=== PATIENT | female | born 1990 | race Caucasian/White ===

== ENCOUNTER 2020-06-01 04:48 | Inpatient (IN) ==
[2020-06-01] MEDS ORDERED: OXYTOCIN 30 UNITS/500 ML BAG IV PRN ×3 (05:11→19:08)
[2020-06-01] MEDS ORDERED: miSOPROStoL 50 MCG TAB PO ONE (05:11)
--- NOTE | 2020-06-01 05:32 | History & Physical Report ---
Date of Service June 01, 2020 Assessment & Plan (1) Supervision of resulting from assisted reproductive technology, antepartum: - heart tracing category 1 with variability and accelerations -Patient with contractions every 3 to 5 minutes mild to palpation -We will monitor for contraction frequency and may need to augment labor- anticipate vaginal delivery (2) Encounter for screening laboratory testing for COVID-19 virus: -Repeat COVID screening is pending -Patient asymptomatic -Rapid screening ordered History of Present Illness Chief Complaint: Rupture of membranes Primary Care Provider: Maurice Parmar MD The patient is a 30-year-old 1 para 0, with an EDC of 01 June at 40 weeks gestational age, who presents to labor and delivery with spontaneous rupture of membranes. Patient states that the membranes ruptured at approximately 0300 hrs. She described the fluid is clear. She was having some cramping prior to the rupture of membranes. Patient's course is remarkable for an IVF . She has been followed per protocol. She has had testing which is all been reassuring. Laboratory values for the show blood type of A+, antibody negative, rubella immune, hepatitis B negative, she had a normal 1 hour Glucola x2, and a negative third trimester beta strep culture. COVID-19 screening from 30 May is pending. Allergies Allergy/AdvReac Type Severity Reaction Status Date / Time No Known Drug Allergies Allergy None Verified 06/01/20 05:10 Home Medications Home Medications Medication Instructions Recorded Confirmed Type prenat.vits,jackeline,[id number] 1 tab PO DAILY 10/27/19 06/01/20 History levothyroxine 75 mcg tablet 75 mcg PO DAILY #30 tab 02/17/20 06/01/20 Rx Patient History Medical History Health care maintenance History of hysterosalpingogram Hx of varicella Hypothyroidism In vitro fertilization Supervision of normal intrauterine in primigravida Surgical History H/O dilation and curettage Family History Mother Thyroid disease Father No problems noted. Grandfather (Paternal) Prostate cancer Denies family history of Ovarian cancer Myocardial infarction Breast cancer Colorectal cancer Social History Smoking Status: Never smoker Hx Alcohol Use: No Hx Substance Use: No marital status: marital status details: Chao Gomez ( 29) [phone] Current Living Situation: Spouse Current Living Situation Comment: lives with spouse, 1 dog current occupational status: unemployed current occupation: homemaker Physical Exam Constitutional: WD/WN, vitals as above Respiratory: Auscultation: lungs clear to auscultation bilaterally Cardiovascular: RRR, no murmur, no edema Extremities: no calf tenderness Gastrointestinal (Abdomen): Abdomen: Gravid vertex positive heart tones estimated weight of 7 and half pounds, mild contractions Genitourinary: Cervix: 1 cm / 90%/0 station, gross rupture Results & Data ([facility]) Vital Signs (Past 12 Hours) Vital Signs Pulse BP 06/01/20 05:04 66 120/63 Coding Level of Care Code None Diagnoses Supervision of resulting from assisted reproductive technology, antepartum O09.819 Encounter for screening laboratory testing for COVID-19 virus Z11.59
[2020-06-01 05:35] LABS: Hematocrit (blood only) 36.6 % (37-47); Hemoglobin 12.3 g/dL (12.0-16.0); Mean Corpuscular Hemoglobin 30.3 pg (25-34); Mean Corpuscular Volume 90.1 fL (80-100); Mean Platelet Volume 9.2 fL (7.4-10.4); Platelet Count 288 K/uL (130-400); RDW Coefficient of Variation 12.7 % (11.5-14.5); RDW Standard Deviation 41.4 fL (36.4-46.3); Red Blood Count 4.06 M/uL (4.2-5.4); White Blood Count 9.64 K/uL (4.8-10.8)
[2020-06-01 05:36] LABS: Mean Corpuscular Hgb Conc 33.6 g/dL (32-36)
[2020-06-01] MEDS: LACTATED RINGER'S 1,000 ML IV PRN ×3 (06:47→13:02)
[2020-06-01] MEDS ORDERED: fentaNYL citrate 100 MCG/2 ML VIAL ONE (07:14)
[2020-06-01] MEDS ORDERED: ePHEDrine sulfate 50 MG/ML AMP ONE (07:14)
[2020-06-01] MEDS ORDERED: BUPIVACAINE 0.25% 30 ML VIAL ONE (07:14)
[2020-06-01] MEDS ORDERED: DiphenhydrAMINE HCL 50 MG/ML VIAL IV PRN (07:15)
[2020-06-01] MEDS ORDERED: ePHEDrine sulfate 50 MG/ML AMP IV PRN (07:15)
[2020-06-01] MEDS ORDERED: NALOXONE HCL 0.4 MG/1 ML VIAL/CARP IV PRN (07:15)
[2020-06-01] MEDS ORDERED: fentaNYL 2MCG/ML ROPIV 1.25MG/ML 100 ML BAG EPI PRN (07:15)
[2020-06-01] MEDS ORDERED: fentaNYL 2MCG/ML ROPIV 1.25MG/ML 100 ML BAG EPI ONE (07:15)
[2020-06-01] MEDS ORDERED: ONDANSETRON INJ 2 MG/ML 2 ML VIAL IV PRN (07:15)
[2020-06-01] MEDS ORDERED: NALOXONE HCL 1 MG in SODIUM CHLORIDE 0.9% 1000ML 1,000 ML IV PRN (07:15)
--- NOTE | 2020-06-01 07:23 | Anesthesiology Consultation ---
Date of Service June 01, 2020 Covid 19 negative today Assessment & Plan Chart Review Chart Review: Patient NOT seen in Pre Admission Testing and Acceptable Risk for Labor Epidural Consults Requested none ASA ASA2 Proposed Anesthesia Anesthesia Type: Labor Epidural and CSE Risk / Benefits Reviewed With: PT / POA / Parent / Guardian, Accepts Plan and Informed Consent Obtained History Height/Weight Height: 5 ft 3 in Weight: 86.636 kg Allergies Allergy/AdvReac Type Severity Reaction Status Date / Time No Known Drug Allergies Allergy None Verified 06/01/20 05:10 Medications Home Medications Medication Instructions Recorded Confirmed Last Taken prenat.vits,jackeline,[id number] 1 tab PO DAILY 10/27/19 06/01/20 06/01/20 levothyroxine 75 mcg tablet 75 mcg PO DAILY #30 tab 02/17/20 06/01/20 05/31/20 Active Medications Generic Name Dose Route Start Last Admin Trade Name Freq PRN Reason Stop Dose Admin Lactated Ringer's 1,000 mls @ 125 mls/hr 06/01/20 05:11 06/01/20 06:47 Lr IV 06/03/20 05:10 999 mls/hr .Q8H PRN Administration L&D Protocol Protocol NPO Date Last Intake of Fluids: 06/01/20 Time Last Intake of Fluids: 06:30 Date Last Intake of Solids: 05/31/20 Time Last Intake of Solids: 19:00 Past Medical History Medical History Health care maintenance History of hysterosalpingogram Hx of varicella Hypothyroidism In vitro fertilization Supervision of normal intrauterine in primigravida Exercise / Class Metabolic Activity II 4-5 Yardwork/Stairs/Walk up hill Past Family History Family History Mother Thyroid disease Father No problems noted. Grandfather (Paternal) Prostate cancer Denies family history of Ovarian cancer Myocardial infarction Breast cancer Colorectal cancer Past Surgical History Surgical History H/O dilation and curettage Past Anesthesia History No Hx of Anesthesia Complications and No Family Hx of Anesthesia Complications History of PONV No Hx of PONV and No Hx of Motion Sickness Social History Smoking Status: Never smoker Hx Alcohol Use: No Hx Substance Use: No substance use type: does not use Review of Systems no chest pain or sob Physical Exam Vital Signs Last Vital Signs Temp 36.8 C 06/01/20 05:12 Pulse 78 06/01/20 07:18 Resp 18 06/01/20 05:12 BP 112/55 L 06/01/20 07:00 Pulse Ox 99 06/01/20 07:18 ENMT Mouth: no TMJ abnormality Thyromental Distance: > or= 3.5 Finger Breadths Mallampati Class: II Neck normal visual inspection Respiratory normal respiratory effort Auscultation: lungs clear to auscultation bilaterally Cardiovascular Rate/Rhythm: regular rate and regular rhythm Musculoskeletal Spine: normal cervical ROM Neurologic moves all extremities Psychiatric Orientation: alert and oriented x 3 Testing Laboratory Results 06/01/20 05:23
--- NOTE | 2020-06-01 11:21 | Labor Progress Brief Note ---
Date of Service June 01, 2020 Subjective Comfortable with epidural. Assessment & Plan (1) PROM (premature rupture of membranes): PROM this morning at 0300, no significant labor progress since admission. Start pitocin now. Admission and Anticipated Discharge Date Admission Date: June 01, 2020 Physical Exam Physical Exam: LOF clear and copious during exam. 290/-2 Vertex palpable FHT Cat 1 [place] Q3min. Results & Data ([facility]) Vital Signs (Past 12 Hours) Vital Signs Temp Pulse Resp BP Pulse Ox 06/01/20 11:17 70 111/56 L 06/01/20 11:14 78 96 06/01/20 11:09 72 99 06/01/20 11:08 76 92 06/01/20 11:04 71 96 06/01/20 11:03 86 93 06/01/20 11:01 67 120/56 L 06/01/20 10:59 70 96 06/01/20 10:56 73 92 06/01/20 10:54 75 96 06/01/20 10:50 75 93 06/01/20 10:49 75 96 06/01/20 10:46 67 117/59 L 06/01/20 10:44 73 96 06/01/20 10:39 76 95 06/01/20 10:35 77 92 06/01/20 10:34 92 H 95 06/01/20 10:30 68 118/62 06/01/20 10:29 71 96 06/01/20 10:24 74 99 06/01/20 10:19 72 99 06/01/20 10:16 63 113/58 L 06/01/20 10:14 89 99 06/01/20 10:09 90 99 06/01/20 10:04 74 96 06/01/20 10:01 110 H 90 06/01/20 10:00 86 110/57 L 06/01/20 09:59 76 96 06/01/20 09:54 71 97 06/01/20 09:49 67 97 06/01/20 09:48 66 93 06/01/20 09:45 73 112/61 06/01/20 09:44 72 97 06/01/20 09:39 74 98 06/01/20 09:34 71 100 06/01/20 09:31 71 121/56 L 06/01/20 09:29 76 99 06/01/20 09:24 74 99 06/01/20 09:19 76 100 06/01/20 09:15 88 103/58 L 06/01/20 09:13 79 96 06/01/20 09:08 77 97 06/01/20 09:03 72 99 06/01/20 09:02 74 102/56 L 06/01/20 08:58 72 98 06/01/20 08:53 76 96 06/01/20 08:48 79 97 06/01/20 08:46 98.6 F 74 16 99/58 L 06/01/20 08:43 79 100 06/01/20 08:38 78 100 06/01/20 08:33 78 100 06/01/20 08:32 66 108/57 L 06/01/20 08:30 58 L 92 06/01/20 08:28 63 100 06/01/20 08:23 68 100 06/01/20 08:18 86 100 06/01/20 08:17 82 124/71 06/01/20 08:13 74 100 06/01/20 08:12 77 97/54 L 06/01/20 08:08 69 97 06/01/20 08:07 75 90 06/01/20 08:03 79 97 06/01/20 08:02 72 20 101/51 L 06/01/20 07:58 79 99 06/01/20 07:53 72 100 06/01/20 07:48 85 100 06/01/20 07:45 76 107/53 L 06/01/20 07:43 75 104/55 L 99 06/01/20 07:41 75 99/52 L 06/01/20 07:39 83 94/55 L 06/01/20 07:38 84 98 06/01/20 07:37 75 96/56 L 06/01/20 07:35 76 98/55 L 06/01/20 07:33 69 96 06/01/20 07:32 76 22 121/61 93 06/01/20 07:28 83 98 06/01/20 07:26 82 93 06/01/20 07:23 98.6 F 84 20 99 06/01/20 07:18 78 99 06/01/20 07:17 8 L 75 L 06/01/20 07:00 74 112/55 L 06/01/20 05:12 98.2 F 18 06/01/20 05:04 66 120/63 Coding Level of Care Code None Diagnoses PROM (premature rupture of membranes) O42.90
--- NOTE | 2020-06-01 13:06 | Labor Progress Brief Note ---
Date of Service June 01, 2020 Subjective Patient comfortable with epidural. RN called MD to alert me of deceleration. Assessment & Plan (1) PROM (premature rupture of membranes): intolerance to closely-spaced contractions. This occurred once earlier today, and now is a second occurrence. Discussed with patient that she is remote from delivery and there is some question of whether fetus will tolerate the labor that is required to achieve vaginal delivery. At this time can use internal monitoring to allow titration of pit (if any needed) to achieve 200-250 MVU goal. This keeps total MVU below a level expected to cause distress in a normal fetus while achieving the force that should be adequate to allow cervical dilation. She and FOB are aware that continued intolerance and/or failure to dilate despite adequate contractions could be an indication for a down the line; they are agreeable if that becomes the plan. Admission and Anticipated Discharge Date Admission Date: June 01, 2020 Physical Exam Physical Exam: Decel x7 min, recovering at the time I arrive in the room. Pitocin off, IV bolus going. FMO2 on mom. Per RN cervix not significantly changed. My exam /0, clear LOF. Farnam shows a run of closely-spaced contractions that likely caused the decel. At this point with pitocin off, contractions have spaced to Q3-4min. I discussed with patient the r/b/a of internal monitoring, and with her permission, and IUPC and FSE were both placed. First FSE not working well so a second one was placed that traced correctly immediately. First FSE removed. FHT now 130s with moderate variability, + accel, no further decels. Farnam Q4 with initial MVUs of 60 per ctx. Results & Data ([facility]) Vital Signs (Past 12 Hours) Vital Signs Temp Pulse Resp BP Pulse Ox 06/01/20 12:59 74 98 06/01/20 12:54 69 100 06/01/20 12:52 75 112/61 06/01/20 12:49 89 99 06/01/20 12:44 67 100 06/01/20 12:39 73 99 06/01/20 12:35 80 99 06/01/20 12:30 71 91/50 L 06/01/20 12:29 71 98 06/01/20 12:24 73 97 06/01/20 12:19 73 100 06/01/20 12:16 70 116/53 L 06/01/20 12:14 76 97 06/01/20 12:09 71 97 06/01/20 12:04 69 98 06/01/20 12:00 69 98/51 L 06/01/20 11:59 69 98 06/01/20 11:54 72 99 06/01/20 11:49 74 98 06/01/20 11:47 73 114/53 L 06/01/20 11:44 86 98 06/01/20 11:39 78 97 06/01/20 11:34 76 98 06/01/20 11:31 73 104/58 L 06/01/20 11:29 72 98 06/01/20 11:24 76 96 06/01/20 11:19 82 100 06/01/20 11:17 70 111/56 L 06/01/20 11:14 78 96 06/01/20 11:09 72 99 06/01/20 11:08 76 92 06/01/20 11:04 71 96 06/01/20 11:03 86 93 06/01/20 11:01 98.8 F 67 20 120/56 L 06/01/20 10:59 70 96 06/01/20 10:56 73 92 06/01/20 10:54 75 96 06/01/20 10:50 75 93 06/01/20 10:49 75 96 06/01/20 10:46 67 117/59 L 06/01/20 10:44 73 96 06/01/20 10:39 76 95 06/01/20 10:35 77 92 06/01/20 10:34 92 H 95 06/01/20 10:30 68 118/62 06/01/20 10:29 71 96 06/01/20 10:24 74 99 06/01/20 10:19 72 99 06/01/20 10:16 63 113/58 L 06/01/20 10:14 89 99 06/01/20 10:09 90 99 06/01/20 10:04 74 96 06/01/20 10:01 110 H 90 06/01/20 10:00 86 110/57 L 06/01/20 09:59 76 96 06/01/20 09:54 71 97 06/01/20 09:49 67 97 06/01/20 09:48 66 93 06/01/20 09:45 73 112/61 06/01/20 09:44 72 97 06/01/20 09:39 74 98 06/01/20 09:34 71 100 06/01/20 09:31 71 121/56 L 06/01/20 09:29 76 99 06/01/20 09:24 74 99 06/01/20 09:19 76 100 06/01/20 09:15 88 103/58 L 06/01/20 09:13 79 96 06/01/20 09:08 77 97 06/01/20 09:03 72 99 06/01/20 09:02 74 102/56 L 06/01/20 08:58 72 98 06/01/20 08:53 76 96 06/01/20 08:48 79 97 06/01/20 08:46 98.6 F 74 16 99/58 L 06/01/20 08:43 79 100 06/01/20 08:38 78 100 06/01/20 08:33 78 100 06/01/20 08:32 66 108/57 L 06/01/20 08:30 58 L 92 06/01/20 08:28 63 100 06/01/20 08:23 68 100 06/01/20 08:18 86 100 06/01/20 08:17 82 124/71 06/01/20 08:13 74 100 06/01/20 08:12 77 97/54 L 06/01/20 08:08 69 97 06/01/20 08:07 75 90 06/01/20 08:03 79 97 06/01/20 08:02 72 20 101/51 L 06/01/20 07:58 79 99 06/01/20 07:53 72 100 06/01/20 07:48 85 100 06/01/20 07:45 76 107/53 L 06/01/20 07:43 75 104/55 L 99 06/01/20 07:41 75 99/52 L 06/01/20 07:39 83 94/55 L 06/01/20 07:38 84 98 06/01/20 07:37 75 96/56 L 06/01/20 07:35 76 98/55 L 06/01/20 07:33 69 96 06/01/20 07:32 76 22 121/61 93 06/01/20 07:28 83 98 06/01/20 07:26 82 93 06/01/20 07:23 98.6 F 84 20 99 06/01/20 07:18 78 99 06/01/20 07:17 8 L 75 L 06/01/20 07:00 74 112/55 L 06/01/20 05:12 98.2 F 18 06/01/20 05:04 66 120/63 Coding Level of Care Code None Diagnoses PROM (premature rupture of membranes) O42.90
--- NOTE | 2020-06-01 15:08 | Labor Progress Brief Note ---
Date of Service June 01, 2020 Subjective Reason For Note: Requested By RN Had seen patient moments before to let her know i was taking over care. FHTs categ 1 and pit was at 3. Called back with recurrent deep variable decels. On my arrival, nursing had pit off, o2 on and moving pt to knee chest position Assessment & Plan (1) PROM (premature rupture of membranes): (2) Active labor at term: (3) Variable deceleration: will see how fetus recovers and add amnioinfusion to see if improves variables. now categ 1. patient and partner aware with good cx change, will attempt to see if this labor can progress and fetus tolerates, as hopefully can achieve normal vaginal delivery Admission and Anticipated Discharge Date Admission Date: June 01, 2020 Physical Exam Constitutional: WD/WN, vitals as above Genitourinary: Manual OB Exam: + cervical dilation 7 cm, + cervical effacement 100% and + station 0 and + 1 OB Exam Monitor Tracing: + scalp electrode used (140 deep variables), + intra-uterine pressure catheter used (q2 ) and + category II for the short spurt where mvu's looked adeq, decels noted. on my arrival fhts 140 mod variability Results & Data ([facility]) Vital Signs (Past 12 Hours) Vital Signs Temp Pulse Resp BP Pulse Ox 06/01/20 15:01 99.0 F 74 20 115/58 L 06/01/20 14:59 92 H 99 06/01/20 14:55 78 91 06/01/20 14:54 78 100 06/01/20 14:49 95 H 99 06/01/20 14:46 68 115/55 L 06/01/20 14:44 68 96 06/01/20 14:39 67 96 06/01/20 14:34 70 97 06/01/20 14:31 68 109/55 L 06/01/20 14:29 77 98 06/01/20 14:24 71 96 06/01/20 14:19 68 96 06/01/20 14:15 66 107/53 L 06/01/20 14:14 71 96 06/01/20 14:09 67 97 06/01/20 14:04 66 97 06/01/20 14:00 75 98/52 L 06/01/20 13:59 71 99 06/01/20 13:54 81 98 06/01/20 13:49 71 100 06/01/20 13:47 68 113/65 06/01/20 13:44 73 98 06/01/20 13:39 74 99 06/01/20 13:34 72 97 06/01/20 13:30 78 113/60 06/01/20 13:29 72 99 06/01/20 13:24 72 99 06/01/20 13:19 68 98 06/01/20 13:15 98.2 F 69 20 120/69 06/01/20 13:14 75 98 06/01/20 13:09 68 99 06/01/20 13:04 70 98 06/01/20 13:00 73 109/65 06/01/20 12:59 74 98 06/01/20 12:54 69 100 06/01/20 12:52 75 112/61 06/01/20 12:49 89 99 06/01/20 12:44 67 100 06/01/20 12:39 73 99 06/01/20 12:35 80 99 06/01/20 12:30 71 91/50 L 06/01/20 12:29 71 98 06/01/20 12:24 73 97 06/01/20 12:19 73 100 06/01/20 12:16 70 116/53 L 06/01/20 12:14 76 97 06/01/20 12:09 71 97 06/01/20 12:04 69 98 06/01/20 12:00 69 98/51 L 06/01/20 11:59 69 98 06/01/20 11:54 72 99 06/01/20 11:49 74 98 06/01/20 11:47 73 114/53 L 06/01/20 11:44 86 98 06/01/20 11:39 78 97 06/01/20 11:34 76 98 06/01/20 11:31 73 104/58 L 06/01/20 11:29 72 98 06/01/20 11:24 76 96 06/01/20 11:19 82 100 06/01/20 11:17 70 111/56 L 06/01/20 11:14 78 96 06/01/20 11:09 72 99 06/01/20 11:08 76 92 06/01/20 11:04 71 96 06/01/20 11:03 86 93 06/01/20 11:01 98.8 F 67 20 120/56 L 06/01/20 10:59 70 96 06/01/20 10:56 73 92 06/01/20 10:54 75 96 06/01/20 10:50 75 93 06/01/20 10:49 75 96 06/01/20 10:46 67 117/59 L 06/01/20 10:44 73 96 06/01/20 10:39 76 95 06/01/20 10:35 77 92 06/01/20 10:34 92 H 95 06/01/20 10:30 68 118/62 06/01/20 10:29 71 96 06/01/20 10:24 74 99 06/01/20 10:19 72 99 06/01/20 10:16 63 113/58 L 06/01/20 10:14 89 99 06/01/20 10:09 90 99 06/01/20 10:04 74 96 06/01/20 10:01 110 H 90 06/01/20 10:00 86 110/57 L 06/01/20 09:59 76 96 06/01/20 09:54 71 97 06/01/20 09:49 67 97 06/01/20 09:48 66 93 06/01/20 09:45 73 112/61 06/01/20 09:44 72 97 06/01/20 09:39 74 98 06/01/20 09:34 71 100 06/01/20 09:31 71 121/56 L 06/01/20 09:29 76 99 06/01/20 09:24 74 99 06/01/20 09:19 76 100 06/01/20 09:15 88 103/58 L 06/01/20 09:13 79 96 06/01/20 09:08 77 97 06/01/20 09:03 72 99 06/01/20 09:02 74 102/56 L 06/01/20 08:58 72 98 06/01/20 08:53 76 96 06/01/20 08:48 79 97 06/01/20 08:46 98.6 F 74 16 99/58 L 06/01/20 08:43 79 100 06/01/20 08:38 78 100 06/01/20 08:33 78 100 06/01/20 08:32 66 108/57 L 06/01/20 08:30 58 L 92 06/01/20 08:28 63 100 06/01/20 08:23 68 100 06/01/20 08:18 86 100 06/01/20 08:17 82 124/71 06/01/20 08:13 74 100 06/01/20 08:12 77 97/54 L 06/01/20 08:08 69 97 06/01/20 08:07 75 90 06/01/20 08:03 79 97 06/01/20 08:02 72 20 101/51 L 06/01/20 07:58 79 99 06/01/20 07:53 72 100 06/01/20 07:48 85 100 06/01/20 07:45 76 107/53 L 06/01/20 07:43 75 104/55 L 99 06/01/20 07:41 75 99/52 L 06/01/20 07:39 83 94/55 L 06/01/20 07:38 84 98 06/01/20 07:37 75 96/56 L 06/01/20 07:35 76 98/55 L 06/01/20 07:33 69 96 06/01/20 07:32 76 22 121/61 93 06/01/20 07:28 83 98 06/01/20 07:26 82 93 06/01/20 07:23 98.6 F 84 20 99 06/01/20 07:18 78 99 06/01/20 07:17 8 L 75 L 06/01/20 07:00 74 112/55 L 06/01/20 05:12 98.2 F 18 06/01/20 05:04 66 120/63 Coding Level of Care Code None Diagnoses PROM (premature rupture of membranes) O42.90 Active labor at term Variable deceleration
--- NOTE | 2020-06-01 17:44 | Labor Progress Brief Note ---
Date of Service June 01, 2020 Subjective Reason For Note: Routine Evaluation feeling more abdominal pressure Assessment & Plan (1) Active labor at term: (2) PROM (premature rupture of membranes): will begin 2nd stage. fhts categ 1. anticip soon. Admission and Anticipated Discharge Date Admission Date: June 01, 2020 Physical Exam Constitutional: WD/WN, vitals as above Genitourinary: Manual OB Exam: + cervical dilation 10 cm, + cervical effacement 100% and + station + 3 OB Exam Monitor Tracing: + scalp electrode used (130 mod variability), + external uterine monitor used (q1-3), + category I and + normal FHT variability Results & Data ([facility]) Vital Signs (Past 12 Hours) Vital Signs Temp Pulse Resp BP Pulse Ox 06/01/20 17:40 88 91 06/01/20 17:39 87 100 06/01/20 17:34 78 100 06/01/20 17:31 84 112/61 06/01/20 17:29 78 100 06/01/20 17:24 69 99 06/01/20 17:19 73 100 06/01/20 17:15 74 130/73 06/01/20 17:14 72 100 06/01/20 17:09 71 100 06/01/20 17:04 71 100 06/01/20 17:01 99.3 F 72 16 131/69 06/01/20 16:59 88 99 06/01/20 16:56 78 86 L 06/01/20 16:54 75 99 06/01/20 16:49 73 100 06/01/20 16:46 73 122/69 06/01/20 16:44 72 99 06/01/20 16:39 73 100 06/01/20 16:34 80 100 06/01/20 16:30 74 113/58 L 06/01/20 16:29 74 98 06/01/20 16:24 75 99 06/01/20 16:22 80 94 06/01/20 16:19 74 99 06/01/20 16:17 71 110/57 L 06/01/20 16:14 92 H 100 06/01/20 16:09 72 96 06/01/20 16:04 73 100 06/01/20 16:01 98.4 F 73 20 114/75 06/01/20 15:59 72 100 06/01/20 15:54 78 97 06/01/20 15:49 82 100 06/01/20 15:45 73 112/59 L 06/01/20 15:44 75 100 06/01/20 15:39 76 100 06/01/20 15:34 75 100 06/01/20 15:31 72 115/61 06/01/20 15:29 71 100 06/01/20 15:24 79 100 06/01/20 15:19 74 97 06/01/20 15:15 75 118/59 L 06/01/20 15:14 73 98 06/01/20 15:09 76 99 06/01/20 15:04 76 99 06/01/20 15:01 99.0 F 74 20 115/58 L 06/01/20 14:59 92 H 99 06/01/20 14:55 78 91 06/01/20 14:54 78 100 06/01/20 14:49 95 H 99 06/01/20 14:46 68 115/55 L 06/01/20 14:44 68 96 06/01/20 14:39 67 96 06/01/20 14:34 70 97 06/01/20 14:31 68 109/55 L 06/01/20 14:29 77 98 06/01/20 14:24 71 96 06/01/20 14:19 68 96 06/01/20 14:15 66 107/53 L 06/01/20 14:14 71 96 06/01/20 14:09 67 97 06/01/20 14:04 66 97 06/01/20 14:00 75 98/52 L 06/01/20 13:59 71 99 06/01/20 13:54 81 98 06/01/20 13:49 71 100 06/01/20 13:47 68 113/65 06/01/20 13:44 73 98 06/01/20 13:39 74 99 06/01/20 13:34 72 97 06/01/20 13:30 78 113/60 06/01/20 13:29 72 99 06/01/20 13:24 72 99 06/01/20 13:19 68 98 06/01/20 13:15 98.2 F 69 20 120/69 06/01/20 13:14 75 98 06/01/20 13:09 68 99 06/01/20 13:04 70 98 06/01/20 13:00 73 109/65 06/01/20 12:59 74 98 06/01/20 12:54 69 100 06/01/20 12:52 75 112/61 06/01/20 12:49 89 99 06/01/20 12:44 67 100 06/01/20 12:39 73 99 06/01/20 12:35 80 99 06/01/20 12:30 71 91/50 L 06/01/20 12:29 71 98 06/01/20 12:24 73 97 06/01/20 12:19 73 100 06/01/20 12:16 70 116/53 L 06/01/20 12:14 76 97 06/01/20 12:09 71 97 06/01/20 12:04 69 98 06/01/20 12:00 69 98/51 L 06/01/20 11:59 69 98 06/01/20 11:54 72 99 06/01/20 11:49 74 98 06/01/20 11:47 73 114/53 L 06/01/20 11:44 86 98 06/01/20 11:39 78 97 06/01/20 11:34 76 98 06/01/20 11:31 73 104/58 L 06/01/20 11:29 72 98 06/01/20 11:24 76 96 06/01/20 11:19 82 100 06/01/20 11:17 70 111/56 L 06/01/20 11:14 78 96 06/01/20 11:09 72 99 06/01/20 11:08 76 92 06/01/20 11:04 71 96 06/01/20 11:03 86 93 06/01/20 11:01 98.8 F 67 20 120/56 L 06/01/20 10:59 70 96 06/01/20 10:56 73 92 06/01/20 10:54 75 96 06/01/20 10:50 75 93 06/01/20 10:49 75 96 06/01/20 10:46 67 117/59 L 06/01/20 10:44 73 96 06/01/20 10:39 76 95 06/01/20 10:35 77 92 06/01/20 10:34 92 H 95 06/01/20 10:30 68 118/62 06/01/20 10:29 71 96 06/01/20 10:24 74 99 06/01/20 10:19 72 99 06/01/20 10:16 63 113/58 L 06/01/20 10:14 89 99 06/01/20 10:09 90 99 06/01/20 10:04 74 96 06/01/20 10:01 110 H 90 06/01/20 10:00 86 110/57 L 06/01/20 09:59 76 96 06/01/20 09:54 71 97 06/01/20 09:49 67 97 06/01/20 09:48 66 93 06/01/20 09:45 73 112/61 06/01/20 09:44 72 97 06/01/20 09:39 74 98 06/01/20 09:34 71 100 06/01/20 09:31 71 121/56 L 06/01/20 09:29 76 99 06/01/20 09:24 74 99 06/01/20 09:19 76 100 06/01/20 09:15 88 103/58 L 06/01/20 09:13 79 96 06/01/20 09:08 77 97 06/01/20 09:03 72 99 06/01/20 09:02 74 102/56 L 06/01/20 08:58 72 98 06/01/20 08:53 76 96 06/01/20 08:48 79 97 06/01/20 08:46 98.6 F 74 16 99/58 L 06/01/20 08:43 79 100 06/01/20 08:38 78 100 06/01/20 08:33 78 100 06/01/20 08:32 66 108/57 L 06/01/20 08:30 58 L 92 06/01/20 08:28 63 100 06/01/20 08:23 68 100 06/01/20 08:18 86 100 06/01/20 08:17 82 124/71 06/01/20 08:13 74 100 06/01/20 08:12 77 97/54 L 06/01/20 08:08 69 97 06/01/20 08:07 75 90 06/01/20 08:03 79 97 06/01/20 08:02 72 20 101/51 L 06/01/20 07:58 79 99 06/01/20 07:53 72 100 06/01/20 07:48 85 100 06/01/20 07:45 76 107/53 L 06/01/20 07:43 75 104/55 L 99 06/01/20 07:41 75 99/52 L 06/01/20 07:39 83 94/55 L 06/01/20 07:38 84 98 06/01/20 07:37 75 96/56 L 06/01/20 07:35 76 98/55 L 06/01/20 07:33 69 96 06/01/20 07:32 76 22 121/61 93 06/01/20 07:28 83 98 06/01/20 07:26 82 93 06/01/20 07:23 98.6 F 84 20 99 06/01/20 07:18 78 99 06/01/20 07:17 8 L 75 L 06/01/20 07:00 74 112/55 L Coding Level of Care Code None Diagnoses Active labor at term PROM (premature rupture of membranes) O42.90
--- NOTE | 2020-06-01 18:16 | Delivery Summary ---
Vaginal Delivery Summary Date of Service June 01, 2020 The patient dilated to complete and pushed to deliver a viable male infant Apgars 9,10 via over 4th degree perineal laceration. Mouth and nose bulb suctioned at perineum. Shoulders and body delivered with ease. Infant was vigorous and crying at . Cord clamped at 30 seconds of life and to maternal abdomen where the cord was then doubly clamped and cut. Placenta delivered spontaneously and intact, three-vessel cord. Hemostasis achieved with dilute pitocin and uterine massage and drainage of the bladder for approximately 200 cc under sterile conditions. Rectal exam performed confirming 4th degree laceration. 4-0 vicryl used to reapproximate the rectal mucosa. Anal sphinter then repaired with multiple interrupted figure of eight sutures of 2-0 vicryl. Remainder of laceration repaired in usual fashion with 3-0 vicryl. Left upper labial laceration reapproximated with 4-0 vicryl. Excellent hemostasis noted. Cervix and sulci intact. EBL 300 cc. Mother and baby stable recovery. [facility] Vaginal Delivery Charge Vaginal Delivery Codes: 62125 global code for the antepartum, delivery, and post-
[2020-06-01] MEDS ORDERED: DIPHTHERIA/TETANUS/PERTUSSIS 0.5 ML SYR/VIAL IM ONE (19:08)
[2020-06-01] MEDS ORDERED: OXYCODONE/ACETAMINOPHEN 5mg/325mg TAB PO PRN (19:08)
[2020-06-01] MEDS ORDERED: BENZOCAINE 20% AER SPR 82.5 GM CAN EXT PRN (19:08)
[2020-06-01] MEDS ORDERED: SUPERCREAM 0.870% 15 GM JAR EXT PRN (19:08)
[2020-06-01] MEDS ORDERED: ACETAMINOPHEN 325 MG TAB PO PRN (19:08)
[2020-06-01] MEDS ORDERED: HYDROCORTISONE ACETATE 25 MG SUPP PR PRN (19:08)
[2020-06-01] MEDS ORDERED: OXYTOCIN 20 UNITS in LACTATED RINGER'S 1,000 ML IV SCH (19:30)
[2020-06-01] MEDS: IBUPROFEN 600 MG TAB PO PRN ×2 (19:43→23:35)
--- NOTE | 2020-06-01 20:29 | Anesthesia Procedure Note ---
Date of Service June 01, 2020 Anesthesia Post Epidural Note Vital Signs Vital Signs: Temp Pulse Resp BP Pulse Ox 36.8 C 88 18 116/63 99 06/01/20 19:00 06/01/20 20:15 06/01/20 19:00 06/01/20 20:15 06/01/20 18:09 Pain Intensity Abdomen: Pain Intensity: 0 Notes Mental Status: alert / awake / arousable and participated in evaluation Patient Amnestic to Procedure: No Nausea / Vomiting: adequately controlled Pain: adequately controlled Airway Patency, RR, SpO2: stable & adequate BP & HR: stable & adequate Hydration State: stable & adequate Neuraxial Anesthesia: was administered and sensory block is resolving Anesthetic Complications: no major complications apparent and Pt Satisfied with anesthetic care Epidural: Removed without complications and With tip intact
[2020-06-01] MEDS: DOCUSATE SODIUM 100 MG CAP PO SCH (21:59)
[2020-06-02] MEDS: LEVOTHYROXINE SODIUM 75 MCG TABLET PO SCH (06:12)
--- NOTE | 2020-06-02 07:06 | Obstetrical Progress Note ---
Date of Service <Wilma Lares DO - Last Filed: 06/02/20 07:40> June 02, 2020 Assessment & Plan <Wilma Surjit Lares DO - Last Filed: 06/02/20 07:40> (1) Normal course: - Feels well today. Eating well, voiding well, ambulating well. - Pain well controlled with ibuprofen 600mg Q4H PRN - Routine care -- OOB, ambulation, diet progression as tolerated - Plan for consult prior to d/c - After discharge will have 6 week follow-up with Dr. Hernandez. - Plan for d/c home tomorrow. Subjective <Wilma Lares DO - Last Filed: 06/02/20 07:40> Roberto Gomez is a 30 y/o female , with successful IVF , who is PPD #1 following with epidural after prom at 40 weeks. Delivery was complicated by 4th degree laceration. She reports feeling well overall this morning. Some abdominal cramping with 5/10 pain that is managed on analgesics down to a 3/10. Voiding without difficulty or dysuria. Tolerating meals overni ght without nausea or vomiting. Patient has been able to ambulate some. + passing gas and + bowel movement. Has persistent lochia with some improvement this morning. Currently . Review of Systems Denies fever or chills. Denies shortness of breath or cough. Denies chest pain. Denies breast pain. Denies nausea or vomiting. Denies dysuria. Denies leg pain or leg swelling. Denies headache or changes in vision. Physical Exam <Wilma Lares DO - Last Filed: 06/02/20 07:40> General: Alert, oriented. No acute distress. Cardiac: Regular rate and rhythm. No murmurs. Respiratory: Clear to auscultation bilaterally a/p, no wheezes/rales/rhonchi. No increased work of breathing. Symmetrical chest rise. No respiratory distress. Abdomen: Soft, nontender, nondistended. Bowel sounds present. Uterus: Uterine fundus firm, palpable 1 cm below umbilicus. Lower Extremities: No lower extremity edema or swelling. No deep calf pain. Tor's negative bilaterally. Results & Data ([facility]) <Wilma Lares, DO - Last Filed: 06/02/20 07:40> Vital Signs (Past 12 Hours) Vital Signs Temp Pulse Pulse Resp BP BP Pulse Ox 06/02/20 03:25 36.8 C 94 H 18 126/73 97 06/01/20 23:20 36.9 C 93 H 16 99/61 L 96 06/01/20 21:05 36.9 C 105 H 16 110/67 97 06/01/20 20:28 81 117/62 06/01/20 20:15 88 116/63 06/01/20 20:00 86 106/59 L 06/01/20 19:45 90 99/55 L 06/01/20 19:30 92 H 114/54 L 06/01/20 19:15 78 114/61 <Francisca Hernandez MD, FACOG - Last Filed: 06/02/20 07:43> Co-Signing Physician Notes Resident Physician Supervision Note: I was present with Dr. Lares during the history and exam. I discussed the case with the resident and agree with the findings and plan as documented in the note. Any exceptions or clarifications are listed here: pt doing well, , willy po, voiding, ambulating, bottom sore but fine. no pain issues. ff 1 down. nt. routine pp care. rh pos, ri. Documented By: Francisca Hernandez MD, FACOG
[2020-06-02] MEDS: DOCUSATE SODIUM 100 MG CAP PO SCH ×2 (07:24→20:04)
[2020-06-02] MEDS: IBUPROFEN 600 MG TAB PO PRN ×4 (07:24→23:51)
[2020-06-03] MEDS: LEVOTHYROXINE SODIUM 75 MCG TABLET PO SCH (05:47)
[2020-06-03] MEDS: IBUPROFEN 600 MG TAB PO PRN (05:47)
[2020-06-03] MEDS: DOCUSATE SODIUM 100 MG CAP PO SCH (07:39)
--- NOTE | 2020-06-03 08:23 | Labor Progress Brief Note ---
Date of Service June 03, 2020 Assessment & Plan Admission and Anticipated Discharge Date Admission Date: June 01, 2020 Physical Exam Constitutional: WD/WN, vitals as above Eyes: PERRL, conjunctivae normal, anicteric sclerae Neck: normal visual inspection Respiratory: normal respiratory effort and able to speak in complete sentences; no respiratory distress and no labored breathing Cardiovascular: Rate/Rhythm: regular rate and regular rhythm Extremities: no edema Chest (Breasts): Chest: normal inspection of chest Gastrointestinal (Abdomen): Inspection/Auscultation: abdomen normal to inspection Soft, postgravid Psychiatric: A+Ox3, euthymic affect Genitourinary: OB Exam Abdomen: + fundal height Fundus: + firm and + relation to umbilicus (fundus just below umbilicus); not tender Results & Data ([facility]) Vital Signs (Past 12 Hours) Vital Signs Temp Pulse Resp BP Pulse Ox 06/03/20 07:30 98.4 F 73 18 100/63 06/02/20 23:30 98.8 F 80 16 108/69 96 Coding Level of Care Code None
== END 2020-06-03 13:05 | disposition home or self-care (01) | DRG 768 ==
LOC: OPB 04:48 → 4S1 04:52 → 4S2 21:00

== ENCOUNTER 2023-05-12 09:02 | Inpatient (IN) ==
[2023-05-13] MEDS ORDERED: OXYTOCIN 30 UNITS/500 ML BAG IV PRN ×3 (07:59→20:39)
[2023-05-13] MEDS ORDERED: LIDOCAINE 1% LOCAL 20 ML VIAL INFIL PRN (07:59)
[2023-05-13 08:25] LABS: Hematocrit (blood only) 35.1 % (37.0-47.0); Mean Corpuscular Hemoglobin 30.3 pg (25.0-34.0); Mean Corpuscular Hgb Conc 34.2 g/dL (32.0-36.0); Mean Corpuscular Volume 88.6 fL (80.0-100.0); Mean Platelet Volume 9.7 fL (9.4-12.4); Platelet Count 247 K/uL (130-400); RDW Coefficient of Variation 12.2 % (11.5-14.5); RDW Standard Deviation 39.6 fL (36.4-46.3); Red Blood Count 3.96 M/uL (4.20-5.40); White Blood Count 9.01 K/ul (4.8-10.8)
[2023-05-13] MEDS: LACTATED RINGER'S 1,000 ML IV PRN ×3 (08:40→18:29)
[2023-05-13] MEDS ORDERED: BUPIVACAINE 0.25% PF 30 ML VIAL ONE (08:52)
[2023-05-13] MEDS ORDERED: SODIUM CHLORIDE 0.9% PF INJ 10 ML VIAL ONE (08:52)
[2023-05-13] MEDS ORDERED: fentaNYL citrate PF 100 MCG/2 ML VIAL ONE (08:52)
[2023-05-13] MEDS ORDERED: ePHEDrine sulfate 50 MG/ML AMP ONE (08:52)
[2023-05-13] MEDS ORDERED: fentaNYL 2MCG/ML ROPIVACAINE 1.25MG/ML 100 ML BAG EPI ONE (08:53)
[2023-05-13] MEDS ORDERED: LIDOCAINE 2%/EPINEPHRINE 1:200,000 20 ML PF ONE (08:53)
[2023-05-13] MEDS ORDERED: SODIUM CHLORIDE 0.9% PF INJ 10 ML VIAL EPI PRN (09:21)
[2023-05-13] MEDS ORDERED: LIDOCAINE 2% MPF LOCAL 5 ML VIAL EPI PRN (09:21)
[2023-05-13] MEDS ORDERED: fentaNYL citrate PF 100 MCG/2 ML VIAL EPI PRN (09:21)
[2023-05-13] MEDS ORDERED: NALOXONE HCL 0.4 MG/1 ML VIAL/CARP IV PRN (09:21)
[2023-05-13] MEDS ORDERED: BUPIVACAINE 0.25% PF 30 ML VIAL EPI STA (09:21)
[2023-05-13] MEDS ORDERED: fentaNYL citrate PF 100 MCG/2 ML VIAL EPI STA (09:21)
[2023-05-13] MEDS ORDERED: ONDANSETRON INJ 2 MG/ML 2 ML VIAL IV PRN (09:21)
[2023-05-13] MEDS ORDERED: LIDOCAINE 2%/EPINEPHRINE 1:200,000 20 ML PF EPI STA (09:21)
[2023-05-13] MEDS ORDERED: BUPIVACAINE 0.25% PF 30 ML VIAL EPI PRN (09:21)
[2023-05-13] MEDS ORDERED: SODIUM CHLORIDE 0.9% PF INJ 10 ML VIAL EPI STA (09:21)
[2023-05-13] MEDS ORDERED: fentaNYL 2MCG/ML ROPIVACAINE 1.25MG/ML 100 ML BAG EPI PRN (09:21)
[2023-05-13] MEDS ORDERED: NALOXONE HCL 1 MG in SODIUM CHLORIDE 0.9% 1000ML 1,000 ML IV PRN (09:21)
[2023-05-13] MEDS ORDERED: ROPIVACAINE 0.5% PF 5 MG/ML 20 ML VIAL EPI PRN (09:21)
[2023-05-13] MEDS ORDERED: ePHEDrine sulfate 50 MG/ML AMP IV PRN (09:21)
[2023-05-13] MEDS ORDERED: NALBUPHINE HCL INJ 10 MG/ML AMP IV PRN (09:21)
[2023-05-13] MEDS ORDERED: diphenhydrAMINE 50 MG/ML VIAL IV PRN (09:21)
--- NOTE | 2023-05-13 09:21 | Anesthesiology Consultation ---
Date of Service May 13, 2023 Assessment & Plan Chart Review Chart Review: Patient NOT seen in Pre Admission Testing and Acceptable Risk for Labor Epidural Consults Requested none ASA ASA2 Proposed Anesthesia Anesthesia Type: Labor Epidural Risk / Benefits Reviewed With: PT / POA / Parent / Guardian, Accepts Plan and Informed Consent Obtained History Height/Weight Height: 5 ft 3 in Weight: 90.265 kg Allergies Allergy/AdvReac Type Severity Reaction Status Date / Time No Known Drug Allergies Allergy None Verified 05/11/23 15:39 Medications Home Medications Medication Instructions Recorded Confirmed Last Taken prenat.vits,jackeline,unu-ftho-vqghj 1 tab PO DAILY 10/29/22 05/13/23 05/12/23 22:00 levothyroxine 50 mcg tablet 50 mcg PO DAILY #90 tabs 11/26/22 05/13/23 05/13/23 06:45 cholecalciferol (vitamin D3) 50 50 mcg PO DAILY 05/13/23 05/13/23 05/12/23 22:00 mcg (2,000 unit) capsule (Vitamin D3) Active Medications Generic Name Dose Route Start Last Admin Trade Name Freq PRN Reason Stop Dose Admin Lactated Ringer's 1,000 mls @ 125 mls/hr 05/13/23 07:59 05/13/23 08:49 Lr IV 05/15/23 07:58 999 mls/hr .Q8H PRN Infusion L&D Protocol Protocol Past Medical History Medical History Borderline abnormal thyroid function test Health care maintenance History of hysterosalpingogram Hx of varicella Hypothyroidism In vitro fertilization Supervision of normal intrauterine in primigravida Exercise / Class Metabolic Activity II 4-5 Yardwork/Stairs/Walk up hill Past Family History Family History Mother Thyroid disease Father No problems noted. Grandfather (Paternal) Prostate cancer Denies family history of Ovarian cancer Myocardial infarction Breast cancer Colorectal cancer Past Surgical History Surgical History H/O dilation and curettage Past Anesthesia History No Hx of Anesthesia Complications and No Family Hx of Anesthesia Complications History of PONV No Hx of PONV and No Hx of Motion Sickness Social History Smoking Status: Never smoker Do You Dip or Chew Tobacco: No Hx Alcohol Use: No Hx Substance Use: No substance use type: does not use Physical Exam Vital Signs Last Vital Signs Temp 36.7 C 05/13/23 07:50 Pulse 85 05/13/23 07:50 Resp 20 05/13/23 07:50 BP 117/79 05/13/23 07:50 ENMT Mouth: no dentition abnormality Thyromental Distance: > or= 3.5 Finger Breadths Mallampati Class: II Neck normal visual inspection Respiratory normal respiratory effort Auscultation: lungs clear to auscultation bilaterally Cardiovascular Rate/Rhythm: regular rate and regular rhythm Psychiatric Orientation: alert Testing Laboratory Results 05/13/23 08:07
--- NOTE | 2023-05-13 10:42 | History & Physical Report ---
Date of Service May 13, 2023 Assessment & Plan (1) Encounter for induction of labor: (2) resulting from in vitro fertilization, antepartum: (3) Supervision of elderly multigravida: (4) Non-dilated cervix in term : Plan admit, iv, labs. junior placed, start pitocin. fhts categ 1. she had cramping with junior placement as cx dilator, aware can be removed. Admission and Anticipated Discharge Date Admission Date: May 13, 2023 History of Present Illness Primary Care Provider: Maurice Parmar MD Late entry 33yo at 40+wks ega for planned induction of labor. Denies rom, vb. +FM. No ctx PNC c/b 1. ama 2. IVF 3. Hypothyroidism 4. ?short femur on u/s done at [facility] PNL RH pos, ri, gbs neg OBH: x 1 Allergies Allergy/AdvReac Type Severity Reaction Status Date / Time No Known Drug Allergies Allergy None Verified 05/11/23 15:39 Home Medications Medication Instructions Recorded Confirmed Type prenat.vits,jackeline,tex-dgvq-ynhic 1 tab PO DAILY 10/29/22 05/13/23 History levothyroxine 50 mcg tablet 50 mcg PO DAILY #90 tabs 11/26/22 05/13/23 Rx cholecalciferol (vitamin D3) 50 50 mcg PO DAILY 05/13/23 05/13/23 History mcg (2,000 unit) capsule (Vitamin D3) Patient History Medical History Borderline abnormal thyroid function test Health care maintenance History of hysterosalpingogram Hx of varicella Hypothyroidism In vitro fertilization Supervision of normal intrauterine in primigravida Surgical History H/O dilation and curettage Family History Mother Thyroid disease Father No problems noted. Grandfather (Paternal) Prostate cancer Denies family history of Ovarian cancer Myocardial infarction Breast cancer Colorectal cancer Social History (Updated 05/13/23 @ 07:55 by Nancy Lou RN) Smoking Status: Never smoker Do You Dip or Chew Tobacco: No; Hx Alcohol Use: No Hx Substance Use: No Preferred Language: Monegasque Communication Ability: Effective Visual Impairment: No Limitations Hearing Ability: Normal Labor Relations Worker Required: No Beliefs That Will Affect Care: None marital status: marital status details: Chao Gomez ( 32) [phone] Current Living Situation: Spouse Current Living Situation Comment: lives with spouse, child, 1 dog. current occupational status: unemployed current occupation: homemaker Other Information That Helps Us Care for You: No Feels Safe at Home: Yes Safety Concerns: Feels Safe At This Time Childhood Exposure to Second-Hand Smoke: No Diet: regular Gender Identity: Female Assistive Devices: None Review of Systems as per Subjective / HPI Physical Exam Constitutional: WD/WN, vitals as above Respiratory: normal respiratory effort, lungs clear to auscultation Cardiovascular: Rate/Rhythm: regular rate and regular rhythm Gastrointestinal (Abdomen): soft gravid nt efw 7-8# Musculoskeletal: no edema nontender calves Neurologic: grossly normal Psychiatric: A+Ox3, euthymic affect Genitourinary: Manual OB Exam: + cervical dilation (1-2cm), + cervical effacement 50% and + station -2 OB Exam Monitor Tracing: + external FHT mon itor used, + external uterine monitor used (irreg), + category I and + normal FHT variability PROCEDURE: sse cx visualized, grasped on ant lip with ring forcep, junior through os and ba lloon inflated with 40cc sterile water. Spec removed, junior taped to leg. pt willy well. Results & Data Vital Signs (Past 12 Hours) Vital Signs Temp Pulse Resp BP Pulse Ox 05/13/23 10:35 66 05/13/23 10:35 110/60 05/13/23 10:33 99 05/13/23 10:33 66 05/13/23 10:28 98 05/13/23 10:28 67 05/13/23 10:23 100 05/13/23 10:23 72 05/13/23 10:21 67 05/13/23 10:21 133/56 L 05/13/23 10:18 97 05/13/23 10:18 65 05/13/23 10:13 99 05/13/23 10:13 64 05/13/23 10:08 98 05/13/23 10:08 68 05/13/23 10:05 68 05/13/23 10:05 108/55 L 05/13/23 10:03 96 05/13/23 10:03 69 05/13/23 09:58 99 05/13/23 09:58 72 05/13/23 09:53 98 05/13/23 09:53 72 05/13/23 09:49 62 05/13/23 09:49 106/56 L 05/13/23 09:48 97 05/13/23 09:48 69 05/13/23 09:47 67 05/13/23 09:47 105/62 05/13/23 09:45 68 05/13/23 09:45 103/61 05/13/23 09:43 98 05/13/23 09:43 73 05/13/23 09:43 108/55 L 05/13/23 09:41 77 05/13/23 09:41 104/65 05/13/23 09:39 67 05/13/23 09:39 109/65 05/13/23 09:38 98 05/13/23 09:38 69 05/13/23 09:38 69 05/13/23 09:38 124/63 05/13/23 09:36 94 05/13/23 09:36 80 05/13/23 09:35 75 05/13/23 09:35 120/78 05/13/23 09:34 76 05/13/23 09:34 120/71 05/13/23 09:33 98 05/13/23 09:33 73 05/13/23 09:28 98 05/13/23 09:28 104 H 05/13/23 07:50 98.1 F 85 20 117/79 Coding Level of Care Code None Diagnoses Encounter for induction of labor Z34.90 resulting from in vitro fertilization, antepartum O09.819 Supervision of elderly multigravida O09.529 Non-dilated cervix in term O34.40 CPT Codes Misx Procedure Codes - 40545 Placement of cervical dilator: 06481 Placement of cervical dilator ([id number])
--- NOTE | 2023-05-13 12:31 | Labor Progress Brief Note ---
Date of Service May 13, 2023 Subjective Comfortable with epidural. SROM approx 11:15a SVE 5/80/-1, bloody show FHT 145, mod elizabeth, +accels, had 4-5 late decels, resolved with repositioning. Continue labor. Assessment & Plan Admission and Anticipated Discharge Date Admission Date: May 13, 2023 Results & Data Vital Signs (Past 12 Hours) Vital Signs Temp Pulse Resp BP Pulse Ox 05/13/23 11:30 36.9 C 20 05/13/23 12:28 100 05/13/23 12:28 70 05/13/23 12:23 97 05/13/23 12:23 59 L 05/13/23 12:19 60 05/13/23 12:19 112/68 05/13/23 12:18 97 05/13/23 12:18 63 05/13/23 12:13 97 05/13/23 12:13 61 05/13/23 12:08 98 05/13/23 12:08 64 05/13/23 12:04 60 05/13/23 12:04 115/68 05/13/23 12:03 98 05/13/23 12:03 57 L 05/13/23 11:58 98 05/13/23 11:58 62 05/13/23 11:53 99 05/13/23 11:53 74 05/13/23 11:50 64 05/13/23 11:50 16 111/70 05/13/23 11:48 98 05/13/23 11:48 79 05/13/23 11:43 99 05/13/23 11:43 65 05/13/23 11:38 98 05/13/23 11:38 63 05/13/23 11:36 62 05/13/23 11:36 114/72 05/13/23 11:33 99 05/13/23 11:33 67 05/13/23 11:28 98 05/13/23 11:28 65 05/13/23 11:23 100 05/13/23 11:23 66 05/13/23 11:21 71 05/13/23 11:21 105/78 05/13/23 11:18 99 05/13/23 11:18 68 05/13/23 11:13 98 05/13/23 11:13 67 05/13/23 11:08 98 05/13/23 11:08 65 05/13/23 11:06 64 05/13/23 11:06 20 108/61 05/13/23 11:03 98 05/13/23 11:03 67 05/13/23 10:58 98 05/13/23 10:58 69 05/13/23 10:53 98 05/13/23 10:53 75 05/13/23 10:48 98 05/13/23 10:48 61 05/13/23 10:43 99 05/13/23 10:43 69 05/13/23 10:38 99 05/13/23 10:38 64 05/13/23 10:35 66 05/13/23 10:35 36.8 C 20 110/60 05/13/23 10:33 99 05/13/23 10:33 66 05/13/23 10:28 98 05/13/23 10:28 67 05/13/23 10:23 100 05/13/23 10:23 72 05/13/23 10:21 67 05/13/23 10:21 133/56 L 05/13/23 10:18 97 05/13/23 10:18 65 05/13/23 10:13 99 05/13/23 10:13 64 05/13/23 10:08 98 05/13/23 10:08 68 05/13/23 10:05 68 05/13/23 10:05 108/55 L 05/13/23 10:03 96 05/13/23 10:03 69 05/13/23 09:58 99 05/13/23 09:58 72 05/13/23 09:53 98 05/13/23 09:53 72 05/13/23 09:49 62 05/13/23 09:49 106/56 L 05/13/23 09:48 97 05/13/23 09:48 69 05/13/23 09:47 67 05/13/23 09:47 105/62 05/13/23 09:45 68 05/13/23 09:45 103/61 05/13/23 09:43 98 05/13/23 09:43 73 05/13/23 09:43 108/55 L 05/13/23 09:41 77 05/13/23 09:41 104/65 05/13/23 09:39 67 05/13/23 09:39 109/65 05/13/23 09:38 98 05/13/23 09:38 69 05/13/23 09:38 69 05/13/23 09:38 124/63 05/13/23 09:36 94 05/13/23 09:36 80 05/13/23 09:35 75 05/13/23 09:35 120/78 05/13/23 09:34 76 05/13/23 09:34 120/71 05/13/23 09:33 98 05/13/23 09:33 73 05/13/23 09:28 98 05/13/23 09:28 104 H 05/13/23 07:50 36.7 C 85 20 117/79 Coding Level of Care Code None Diagnoses
--- NOTE | 2023-05-13 17:34 | Labor Progress Brief Note ---
Date of Service May 13, 2023 Subjective Comfortable. FHT Cat 1 Petros Q 2 SVE 6/90/0 Continue labor. Assessment & Plan Admission and Anticipated Discharge Date Admission Date: May 13, 2023 Results & Data Vital Signs (Past 12 Hours) Vital Signs Temp Pulse Resp BP Pulse Ox 05/13/23 17:31 37.1 C 16 05/13/23 15:50 36.7 C 20 05/13/23 11:30 36.9 C 20 05/13/23 17:28 100 05/13/23 17:28 63 05/13/23 17:23 99 05/13/23 17:23 63 05/13/23 17:20 69 05/13/23 17:20 119/65 05/13/23 17:18 99 05/13/23 17:18 66 05/13/23 17:13 100 05/13/23 17:13 65 05/13/23 17:08 100 05/13/23 17:08 68 05/13/23 17:05 66 05/13/23 17:05 121/71 05/13/23 17:03 100 05/13/23 17:03 67 05/13/23 16:58 100 05/13/23 16:58 64 05/13/23 16:53 100 05/13/23 16:53 67 05/13/23 16:51 63 05/13/23 16:51 115/62 05/13/23 16:48 100 05/13/23 16:48 63 05/13/23 16:43 100 05/13/23 16:43 70 05/13/23 16:38 99 05/13/23 16:38 63 05/13/23 16:36 64 05/13/23 16:36 113/64 05/13/23 16:33 99 05/13/23 16:33 64 05/13/23 16:28 100 05/13/23 16:28 65 05/13/23 16:23 100 05/13/23 16:23 64 05/13/23 16:20 60 05/13/23 16:20 116/60 05/13/23 16:18 99 05/13/23 16:18 67 05/13/23 16:13 99 05/13/23 16:13 70 05/13/23 16:08 100 05/13/23 16:08 63 07/26/23 16:04 69 05/13/23 16:04 109/64 05/13/23 16:03 100 05/13/23 16:03 68 05/13/23 15:58 100 05/13/23 15:58 63 05/13/23 15:53 100 05/13/23 15:53 77 05/13/23 15:50 61 05/13/23 15:50 109/59 L 05/13/23 15:48 100 05/13/23 15:48 63 05/13/23 15:43 98 05/13/23 15:43 64 05/13/23 15:38 100 05/13/23 15:38 62 05/13/23 15:35 60 05/13/23 15:35 109/61 05/13/23 15:33 100 05/13/23 15:33 62 05/13/23 15:28 100 05/13/23 15:28 61 05/13/23 15:23 100 05/13/23 15:23 65 05/13/23 15:20 64 05/13/23 15:20 110/59 L 05/13/23 15:18 100 05/13/23 15:18 66 05/13/23 15:13 100 05/13/23 15:13 62 05/13/23 15:08 99 05/13/23 15:08 69 05/13/23 15:05 63 05/13/23 15:05 108/56 L 05/13/23 15:03 99 05/13/23 15:03 64 05/13/23 14:58 99 05/13/23 14:58 63 05/13/23 14:53 100 05/13/23 14:53 61 05/13/23 14:48 100 05/13/23 14:48 68 05/13/23 14:43 98 05/13/23 14:43 69 05/13/23 14:38 99 05/13/23 14:38 70 05/13/23 14:34 73 05/13/23 14:34 36.7 C 20 113/57 L 05/13/23 14:33 99 05/13/23 14:33 76 05/13/23 14:28 99 05/13/23 14:28 79 05/13/23 14:23 100 05/13/23 14:23 70 05/13/23 14:21 71 05/13/23 14:21 110/57 L 05/13/23 14:18 100 05/13/23 14:18 72 05/13/23 14:13 99 05/13/23 14:13 63 05/13/23 14:08 99 05/13/23 14:08 63 05/13/23 14:04 71 05/13/23 14:04 105/63 05/13/23 14:03 99 05/13/23 14:03 66 05/13/23 13:58 99 05/13/23 13:58 64 05/13/23 13:53 100 05/13/23 13:53 75 05/13/23 13:48 99 05/13/23 13:48 74 05/13/23 13:43 99 05/13/23 13:43 68 05/13/23 13:38 100 05/13/23 13:38 66 05/13/23 13:36 60 05/13/23 13:36 36.6 C 16 106/59 L 05/13/23 13:33 99 05/13/23 13:33 61 05/13/23 13:28 99 05/13/23 13:28 59 L 05/13/23 13:23 99 05/13/23 13:23 61 05/13/23 13:20 61 05/13/23 13:20 16 105/61 05/13/23 13:18 100 05/13/23 13:18 80 05/13/23 13:13 99 05/13/23 13:13 61 05/13/23 13:08 99 05/13/23 13:08 59 L 05/13/23 13:04 59 L 05/13/23 13:04 106/61 05/13/23 13:03 100 05/13/23 13:03 59 L 05/13/23 12:58 100 05/13/23 12:58 64 05/13/23 12:53 98 05/13/23 12:53 68 05/13/23 12:51 59 L 05/13/23 12:51 36.8 C 16 109/57 L 05/13/23 12:48 99 05/13/23 12:48 60 05/13/23 12:43 99 05/13/23 12:43 65 05/13/23 12:38 99 05/13/23 12:38 61 05/13/23 12:36 60 05/13/23 12:36 105/65 05/13/23 12:33 98 05/13/23 12:33 61 05/13/23 12:28 100 05/13/23 12:28 70 05/13/23 12:23 97 05/13/23 12:23 59 L 05/13/23 12:19 60 05/13/23 12:19 112/68 05/13/23 12:18 97 05/13/23 12:18 63 05/13/23 12:13 97 05/13/23 12:13 61 05/13/23 12:08 98 05/13/23 12:08 64 05/13/23 12:04 60 05/13/23 12:04 115/68 05/13/23 12:03 98 05/13/23 12:03 57 L 05/13/23 11:58 98 05/13/23 11:58 62 05/13/23 11:53 99 05/13/23 11:53 74 05/13/23 11:50 64 05/13/23 11:50 16 111/70 05/13/23 11:48 98 05/13/23 11:48 79 05/13/23 11:43 99 05/13/23 11:43 65 05/13/23 11:38 98 05/13/23 11:38 63 05/13/23 11:36 62 05/13/23 11:36 114/72 05/13/23 11:33 99 05/13/23 11:33 67 05/13/23 11:28 98 05/13/23 11:28 65 05/13/23 11:23 100 05/13/23 11:23 66 05/13/23 11:21 71 05/13/23 11:21 105/78 05/13/23 11:18 99 05/13/23 11:18 68 05/13/23 11:13 98 05/13/23 11:13 67 05/13/23 11:08 98 05/13/23 11:08 65 05/13/23 11:06 64 05/13/23 11:06 20 108/61 05/13/23 11:03 98 05/13/23 11:03 67 05/13/23 10:58 98 05/13/23 10:58 69 05/13/23 10:53 98 05/13/23 10:53 75 05/13/23 10:48 98 05/13/23 10:48 61 05/13/23 10:43 99 05/13/23 10:43 69 05/13/23 10:38 99 05/13/23 10:38 64 05/13/23 10:35 66 05/13/23 10:35 36.8 C 20 110/60 05/13/23 10:33 99 05/13/23 10:33 66 05/13/23 10:28 98 05/13/23 10:28 67 05/13/23 10:23 100 05/13/23 10:23 72 05/13/23 10:21 67 05/13/23 10:21 133/56 L 05/13/23 10:18 97 05/13/23 10:18 65 05/13/23 10:13 99 05/13/23 10:13 64 05/13/23 10:08 98 05/13/23 10:08 68 05/13/23 10:05 68 05/13/23 10:05 108/55 L 05/13/23 10:03 96 05/13/23 10:03 69 05/13/23 09:58 99 05/13/23 09:58 72 05/13/23 09:53 98 05/13/23 09:53 72 05/13/23 09:49 62 05/13/23 09:49 106/56 L 05/13/23 09:48 97 05/13/23 09:48 69 05/13/23 09:47 67 05/13/23 09:47 105/62 05/13/23 09:45 68 05/13/23 09:45 103/61 05/13/23 09:43 98 05/13/23 09:43 73 05/13/23 09:43 108/55 L 05/13/23 09:41 77 05/13/23 09:41 104/65 05/13/23 09:39 67 05/13/23 09:39 109/65 05/13/23 09:38 98 05/13/23 09:38 69 05/13/23 09:38 69 05/13/23 09:38 124/63 05/13/23 09:36 94 05/13/23 09:36 80 05/13/23 09:35 75 05/13/23 09:35 120/78 05/13/23 09:34 76 05/13/23 09:34 120/71 05/13/23 09:33 98 05/13/23 09:33 73 05/13/23 09:28 98 05/13/23 09:28 104 H 05/13/23 07:50 36.7 C 85 20 117/79 Coding Level of Care Code None Diagnoses
[2023-05-13] MEDS ORDERED: bisacodyL 10 MG SUPP PR PRN (20:39)
[2023-05-13] MEDS ORDERED: BENZOCAINE 20% SPRY 85 APPLN/85 GM CAN EXT PRN (20:39)
[2023-05-13] MEDS ORDERED: HYDROCORTISONE ACETATE 25 MG SUPP PR PRN (20:39)
[2023-05-13] MEDS ORDERED: DIPHTHERIA/TETANUS/PERTUSSIS Vaccine (Tdap, Age 7+yrs) 0.5mL SYR/VL IM ONE (20:39)
[2023-05-13] MEDS ORDERED: oxyCODONE/ACETAMINOPHEN 5mg/325mg TAB PO PRN (20:39)
--- NOTE | 2023-05-13 20:50 | Anesthesia Procedure Note ---
Date of Service May 13, 2023 Anesthesia Post Epidural Note Vital Signs Vital Signs: Temp Pulse Resp BP Pulse Ox 36.9 C 79 18 126/60 99 05/13/23 20:00 05/13/23 20:49 05/13/23 20:30 05/13/23 20:49 05/13/23 19:23 Pain Intensity Abdomen: Pain Intensity: 3 Notes Mental Status: alert / awake / arousable and participated in evaluation Nausea / Vomiting: adequately controlled Pain: adequately controlled Airway Patency, RR, SpO2: stable & adequate BP & HR: stable & adequate Hydration State: stable & adequate Neuraxial Anesthesia: was administered and sensory block is resolving Anesthetic Complications: no major complications apparent and Pt Satisfied with anesthetic care Epidural: Removed without complications and With tip intact
--- NOTE | 2023-05-13 21:08 | Delivery Summary ---
Vaginal Delivery Summary Date of Service May 13, 2023 Vaginal Delivery Summary and 4th Degree LAC Vaginal Delivery Summary: Pre-delivery diagnoses: 33yo @ 40 6/7, IOL for postdates, Sperm donor, IVF/ICSI, AMA, hypothyroidism, short femur Post-delivery diagnoses: same Procedure: spontaneous vaginal delivery, repair of 4th degree perineal laceration Surgeon: Teresa Jarvis DO Complications: none Findings: Viable female . Apgars: 8/9 . Weight pending, please see nursery records Estimated blood loss: 300ml Description of delivery: The patient progressed to complete with epidural anesthesia. She then began to push. She spontaneously vaginally delivered a viable from the cephalic presentation. The head delivered in DILLAN position. The anterior shoulder delivered, followed by the posterior shoulder, followed by the body. No nuchal cord. The baby was placed on mother's abdomen and a spontaneous cry was heard. Delayed cord clamping was employed, and the cord was doubly clamped and cut. Cord blood was obtained. The placenta was delivered spontaneously intact with a 3-vessel cord. The uterus and vagina were swept of clots and debris. IV pitocin was given. The uterus became firm. The cervix, vagina, and perineum were inspected. 4th degree laceration noted, with laceration through external anal sphincter and small entry into rectum at the posterior portion of the tear. The rectal mucosa was reapproximated using a single [id number] suture of chromic, with no entry of suture into the rectum. This successfully closed the small tear that entered the rectum. Next, the anal sphincter muscle was grasped on each end with Allis clamps, and using figure of eight stitches of 3-0 Chromic, this muscle was reapproximated. The remaining laceration was reapproximated in standard fashion with 3-0 vicryl. There was also a small periclitoral laceration, and a red rubber catheter was placed into the urethra, and this was reapproximated in a running stitch of 3-0 vicryl. Excellent hemostasis was observed. Rectal exam revealed repaired rectum with no sutures in the rectum. The mother and baby are recovering in stable and good condition in the room. Sponge, needle and instrument counts were correct x 2. Teresa Jarvis DO [facility] [place] Vaginal Delivery Charge Vaginal Delivery Codes: 15589 global code for the antepartum, delivery, and p ost- Delivery Type Details: and 4th Degree LAC
[2023-05-13] MEDS: IBUPROFEN 600 MG TAB PO PRN (21:22)
[2023-05-13] MEDS: DOCUSATE SODIUM 100 MG CAP PO SCH (21:22)
[2023-05-13] MEDS: ACETAMINOPHEN 325 MG TAB PO PRN (23:34)
[2023-05-14] MEDS: IBUPROFEN 600 MG TAB PO PRN ×2 (04:20→10:45)
[2023-05-14 06:24] LABS: Hematocrit (blood only) 30.9 % (37.0-47.0); Hemoglobin 10.5 g/dl (12.0-16.0)
--- NOTE | 2023-05-14 06:30 | Obstetrical Progress Note ---
Date of Service <Rosalee Raymundo MD - Last Filed: 05/14/23 08:12> May 14, 2023 Assessment & Plan <Rosalee Raymundo MD - Last Filed: 05/14/23 08:12> (1) Spontaneous vaginal delivery: Patient with the above mentioned history and findings was evaluated at bedside and found awake, alert, oriented in all spheres, afebrile, and in no acute distress. Vital signs showed no fever and blood pressures remained stable and denies any symptoms of severity (e.g. vision changes, headaches, RUQ pain, oliguria, etc.). Her pain intensity is rated as a 3 in a 10-point scale, and is adequately controlled with analgesia. Her blood type is A positive and today's hemoglobin is adequate at 10.5 g/dL. Serologies are negative for GBS and patient is Rubella immune. Overall, patient is doing well clinically. Therefore, will encourage ambulation as tolerated and will resume regular diet. Will continue monitoring pain levels and management with Motrin PRN. Patient is encouraged to breastfeed and to notify changes in normal lochia such as excessive bleeding (using more than 1 pa d per hour), foul smell, or purulent appearance. Patient was counselled on discharge instructions. She is to make an appointment with her OB for 6 weeks after discharge for follow up evaluation. All questions were answered. <Teresa Jarvis DO - Last Filed: 05/14/23 08:44> (1) Spontaneous vaginal delivery: Subjective <Rosalee Raymundo MD - Last Filed: 05/14/23 08:12> Roberto is a 33 y/o female who is now PPD # 1 following at 40 6/7 weeks after IOL due to post-term dates. Reports feeling well overall this morning. Refers mild abdominal cramping & 3/10 pain well managed on analgesics. Voiding spontaneously without difficulty. Tolerating meals overnight and able to ambulate some. She is passing gas but has not had a bowel movement yet. Some persistent lochia with some improvement this morning. Breast feeding. Constitutional: no fever, no chills or no sweats Denies shortness of breath or difficulty breathing Cardiovascular: no chest pain or no palpitations Breast: no breast pain Genitourinary (female): no dysuria Neurologic: no headache(s) Denies changes in vision Physical Exam <Rosalee Raymundo MD - Last Filed: 05/14/23 08:12> General: Alert. Oriented to person, time, and place. Afebrile. No acute distress. Eyes: pupils equal and reactive to light bilaterally, extraocular movements intact. Cardiac: Regular rate and rhythm, no murmurs/rubs/gallops. Respiratory: Clear to auscultation bilaterally a/p, no wheezes/rales/rhonchi. No increased work of breathing. Symmetrical chest rise. No respiratory distress. Abdomen: Soft, nontender, nondistended. Bowel sounds present. Uterus: Uterine fundus firm, non-tender, and palpable at the umbilicus. Lower Extremities: Bilateral lower extremity swelling. No deep calf pain. Tor's negative bilaterally. Psych: Euthymic affect. Mood and affect congruence. Regular speech rate and content. Results & Data <Rosalee Raymundo MD - Last Filed: 05/14/23 08:12> Vital Signs (Past 12 Hours) Vital Signs Temp Pulse Pulse Resp BP BP Pulse Ox 05/14/23 04:52 36.9 C 72 18 122/68 98 05/13/23 23:20 37.6 C H 69 18 117/74 97 05/13/23 23:20 37.6 C H 69 18 117/74 97 05/13/23 22:00 18 05/13/23 21:30 18 05/13/23 21:00 18 05/13/23 20:45 18 05/13/23 20:30 18 05/13/23 20:15 18 05/13/23 20:00 36.9 C 18 05/13/23 18:31 37 C 20 05/13/23 22:19 65 05/13/23 22:19 107/59 L 05/13/23 22:04 76 05/13/23 22:04 105/55 L 05/13/23 21:49 80 05/13/23 21:49 108/56 L 05/13/23 21:34 78 05/13/23 21:34 108/59 L 05/13/23 21:19 73 05/13/23 21:19 118/56 L 05/13/23 21:04 81 05/13/23 21:04 123/59 L 05/13/23 20:49 79 05/13/23 20:49 126/60 05/13/23 20:35 80 05/13/23 20:35 132/83 05/13/23 20:19 77 05/13/23 20:19 97/63 L 05/13/23 20:04 71 05/13/23 20:04 110/58 L 05/13/23 19:49 75 05/13/23 19:49 111/69 05/13/23 19:35 88 05/13/23 19:35 108/68 05/13/23 19:00 18 05/13/23 19:00 36.8 C 18 05/13/23 19:23 99 05/13/23 19:23 74 05/13/23 19:19 82 L 05/13/23 19:19 82 05/13/23 19:20 83 05/13/23 19:20 139/92 05/13/23 19:18 100 05/13/23 19:18 76 05/13/23 19:13 100 05/13/23 19:13 74 05/13/23 19:08 100 05/13/23 19:08 73 05/13/23 19:05 71 05/13/23 19:05 126/90 05/13/23 19:03 98 05/13/23 19:03 74 05/13/23 18:58 100 05/13/23 18:58 64 05/13/23 18:53 100 05/13/23 18:53 70 05/13/23 18:51 63 05/13/23 18:51 125/73 05/13/23 18:48 100 05/13/23 18:48 65 05/13/23 18:43 100 05/13/23 18:43 65 05/13/23 18:38 100 05/13/23 18:38 64 05/13/23 18:35 62 05/13/23 18:35 122/70 05/13/23 18:33 100 05/13/23 18:33 63 05/13/23 18:28 100 05/13/23 18:28 61 O2 Del Method 05/14/23 04:52 Room Air 05/13/23 23:20 05/13/23 23:20 Room Air 05/13/23 22:00 05/13/23 21:30 05/13/23 21:00 05/13/23 20:45 05/13/23 20:30 05/13/23 20:15 05/13/23 20:00 05/13/23 18:31 05/13/23 22:19 05/13/23 22:19 05/13/23 22:04 05/13/23 22:04 05/13/23 21:49 05/13/23 21:49 05/13/23 21:34 05/13/23 21:34 05/13/23 21:19 05/13/23 21:19 05/13/23 21:04 05/13/23 21:04 05/13/23 20:49 05/13/23 20:49 05/13/23 20:35 05/13/23 20:35 05/13/23 20:19 05/13/23 20:19 05/13/23 20:04 05/13/23 20:04 05/13/23 19:49 05/13/23 19:49 05/13/23 19:35 05/13/23 19:35 05/13/23 19:00 05/13/23 19:00 05/13/23 19:23 05/13/23 19:23 05/13/23 19:19 05/13/23 19:19 05/13/23 19:20 05/13/23 19:20 05/13/23 19:18 05/13/23 19:18 05/13/23 19:13 05/13/23 19:13 05/13/23 19:08 05/13/23 19:08 05/13/23 19:05 05/13/23 19:05 05/13/23 19:03 05/13/23 19:03 05/13/23 18:58 05/13/23 18:58 05/13/23 18:53 05/13/23 18:53 05/13/23 18:51 05/13/23 18:51 05/13/23 18:48 05/13/23 18:48 05/13/23 18:43 05/13/23 18:43 05/13/23 18:38 05/13/23 18:38 05/13/23 18:35 05/13/23 18:35 05/13/23 18:33 05/13/23 18:33 05/13/23 18:28 05/13/23 18:28 <Teresa Jarvis DO - Last Filed: 05/14/23 08:44> Co-Signing Physician Notes Resident Physician Supervision Note: I was present with Dr. Raymundo during the history and exam. I discussed the case with the resident and agree with the findings and plan as documented in the note. Any exceptions or clarifications are listed here: PPD#1 doing well. Desires DC home. DC instructions reviewed, followup 6w PP. Documented By: Teresa Jarvis DO Resident Activity Tracking <Rosalee Raymundo MD - Last Filed: 05/14/23 08:12> Resident Involvement: Resident Care Provided Care Provided: OB Delivery
[2023-05-14] MEDS: ACETAMINOPHEN 325 MG TAB PO PRN ×2 (06:39→17:39)
[2023-05-14] MEDS ORDERED: PRENATAL VITAMIN 1 TAB PO SCH (08:00)
[2023-05-14] MEDS ORDERED: LEVOTHYROXINE SODIUM 50 MCG TABLET PO SCH (09:00)
[2023-05-14] MEDS: DOCUSATE SODIUM 100 MG CAP PO SCH (09:19)
[2023-05-14] MEDS ORDERED: bisacodyL 5 MG TABEC PO SCH (20:00)
== END 2023-05-14 21:15 | disposition home or self-care (01) | DRG 768 ==
LOC: 4S1 05-13 07:43 → 4E1 05-13 23:11